=== PATIENT | female | born 1975 | race Caucasian/White ===

== ENCOUNTER 2022-09-19 00:49 | Day surgery (SDC) | payer BC, SELFPAY ==
[2022-09-08 15:10] VITALS: BMI 25.7
--- NOTE | 2022-09-08 15:15 | PC.NURSE ---
Report to the Outpatient Waiting Room, entrance under the green pavilion located off [facility], at time 07:45AM on date 09-19-22. Planned Procedure Time: 09:45AM. Time changes happen often and if your time is changed the preop area will call you the afternoon before. - You and your visitor will be asked to self-screen and do not enter if you have any COVID symptoms. - Only one visitor is requested with a max of two and NO children visitors are allowed at this time. - The patient visitor may be requested to leave or wait in car when not with patient due to distancing restrictions. - A mask is optional within the hospital at this time. Patients may have clear liquids (water, carbonated beverages, clear teas, apple juice) until 3 hours prior to surgery (06:45AM) with a maximum of 20 ounces. - No food from midnight until time of surgery Take the following medications with a SIP of water the morning of surgery: N/A DO NOT STOP ANY OF YOUR OTHER PRESCRIPTION MEDICATIONS PRIOR TO SURGERY ?EXCEPT THE FOLLOWING Medications to discontinue per physician: VITAMINS AND SUPPLEMENTS Date to take last dose 09-15-22 Please no make-up, nail indonesian, hairspray, perfume, deodorant, or body powder the day of surgery. No jewelry (including any body piercings) or valuables the day of surgery, leave them at home. Please take a shower or bath the night before, or the morning of, surgery with an antibacterial soap. Wear comfortable, loose fitting clothing. - Jewelry must be removed prior to entering the operating room. Rings and piercings that are not removed may be cut off. - The hospital will not accept responsibility for valuables. - Please leave all valuables, including medications, at home the day of surgery. If you are going home after surgery, a licensed courier delivery driver must drive you home. - NO public transportation without another adult if you receive anesthesia. - We recommend that an adult stay with you for 24 hours following discharge. - We also recommend that you do not drive, make important decision, drink alcoholic beverages, or take any drugs that were not prescribed by your health care provider for at least 24 hours after your discharge time. Follow any additional instructions given to you from your surgeon. If you or anyone in your household have experienced Covid symptoms in the past week, please notify your surgeon or the nurse liaison at the phone number below for possible testing. Telephone instructions given to PATIENT and asked if any additional questions and then verbalized understanding. Patient advised to call surgeon office or pre surgery nurse liaison [phone] if any additional questions.
--- NOTE | 2022-09-19 07:25 | WPDHPUPDATE1 ---
History and Physical Update Update Date/Time: 09/19/22 07:25 History and Physical has been reviewed, including an updated exam of the patient. There are NO changes in the patient's condition. Risks, benefits, and alternatives have been discussed and questions answered. Patient agrees to proceed with procedure.
--- NOTE | 2022-09-19 07:26 | PM.HPGS ---
History of Present Illness History of Present Illness Consent: Risks, benefits, and alternatives have been discussed and questions answered. Patient agrees to proceed with procedure. Chief complaint: menorrhagia Narrative: Isabella Robbins is a 46 year old female had abnormal vaginal bleeding. Patient has had random spotting throughout her cycle. The pelvic ultrasound reveals a fibroid but is otherwise normal. It was recommended for further evaluation with hysteroscopy D&C. Risks of infection, bleeding, perforation, and possible pathology are reviewed. Patient voices understanding and agrees to proceed. Review of Systems Review of Systems: not repeated day of surgery; patient states no changes in status [facility] Past Medical History Medical History (Updated 09/19/22 @ 07:29 by Deena Kerns MD) Depression Surgical History Surgical History (Updated 09/19/22 @ 07:29 by Deena Kerns MD) History of bilateral tubal ligation with her 4th History of x4 History of foot surgery History of hysteroscopy 2016 pathology revealed placental nodules Social History Social History Smoking status: Never smoker Second hand tobacco smoke exposure: No Alcohol intake: current Drinks per week: 5 Alcohol use details: WINE Substance use: never Substance use type: does not use Living arrangements: with family Spiritual care concerns: No Meds Home Medications and Allergies Home Medications Medication Instructions Recorded Confirmed Type Adults Multivitamin 1 tab-cap PO DAILY 09/08/22 09/08/22 History Flonase 1 spray PO DAILY 09/08/22 09/08/22 History ascorbate calcium (vitamin C) 500 PO DAILY 09/08/22 History mg capsule ergocalciferol (vitamin D2) 1,250 50,000 unit PO DAILY 09/08/22 09/08/22 History mcg (50,000 unit) capsule Allergies Allergy/AdvReac Type Severity Reaction Status Date / Time XEROFORM GAUZE Allergy Mild RASH Uncoded 09/08/22 15:06 Exam Const: General: healthy appearing and alert Orientation/consciousness: patient oriented x3 Resp: Effort & Inspection: normal respiratory effort Auscultation: clear to auscultation bilaterally Cardio: Rate: regular rate Rhythm: regular rhythm GI: GI Palp: Yes Soft to palpation, No Tenderness to palpation present (GI) and No Palpable mass present : External Female Exam: normal external appearance Speculum Exam - Vagina: normal appearance of the vagina and normal vaginal discharge Speculum Exam - Cervix: normal appearance of the cervix Bimanual exam- vagina & uterus: uterine size normal and consistency normal Bimanual Exam- Adnexa, other: normal adnexae and No adnexal tenderness Neuro: General: patient oriented x3 Assessment and Plan Assessment and plan (1) Menometrorrhagia: Code(s): N92.1 - Excessive and frequent menstruation with irregular cycle Status: Acute Assessment and Plan: plan is to proceed with D&C hysteroscopy
--- NOTE | 2022-09-19 08:07 | P.PNAN_ITS ---
Anes - Initial Pre Proc Eval Procedure: Operation Date: 09/19/22 09:45 Proposed Procedures p Hysteroscopy Dilation and Curettage - Deena Kerns MD Date/Time: 09/19/22 08:07 Surgeon: Deena Kerns MD Pre Op Diagnosis: menorrhagia Patient Data Age: 46 Gender: F Height: 1.65 m Weight: 70 kg Allergies Allergy/AdvReac Type Severity Reaction Status Date / Time XEROFORM GAUZE Allergy Mild RASH Uncoded 09/08/22 15:06 Home Medications Medication Instructions Recorded Confirmed Type Adults Multivitamin 1 tab-cap PO DAILY 09/08/22 09/08/22 History Flonase 1 spray PO DAILY 09/08/22 09/08/22 History ascorbate calcium (vitamin C) 500 PO DAILY 09/08/22 History mg capsule ergocalciferol (vitamin D2) 1,250 50,000 unit PO DAILY 09/08/22 09/08/22 History mcg (50,000 unit) capsule Patient hx anesthesia problems: none Family hx anesthesia problems: none Results Review: All pre-operative results and documents have been reviewed as part of the pre-operative evaluation. [facility] Past Medical History Medical History (Updated 09/19/22 @ 07:29 by Deena Kerns MD) Depression Surgical History Surgical History History of bilateral tubal ligation with her 4th History of x4 History of foot surgery History of hysteroscopy 2016 pathology revealed placental nodules Social History Social History Smoking status: Never smoker Second hand tobacco smoke exposure: No Alcohol intake: current Drinks per week: 5 Alcohol use details: WINE Substance use: never Substance use type: does not use Living arrangements: with family Spiritual care concerns: No Anes - Eval Final PreProcedure Day of Procedure 09/19/22 08:07 Patient weight: normal Heart: regular rate and rhythm Lungs: clear to auscultation Airway: Mallampati scale class II Neurological: alert and oriented Last oral intake: >/= 8 hours ASA classification: II Emergent: no Anesthetic plan: proceed Anesthesia type and monitoring: general GIVS and standard monitoring Results Review: All pre-operative results and documents have been reviewed as part of the pre- operative evaluation. Informed Consent: The patient's anesthetic plan and its attendant risks and benefits were discussed with the patient/family/POA. Questions were solicited and answers provided to the satisfaction of the patient/family/POA.
[2022-09-19 08:26] VITALS: BP 134/82; PULSE 64; RESP 14; TEMP 36.4; O2SAT 97
[2022-09-19] MEDS: LACTATED RINGERS 1,000 ML 30 ML IV CONT (08:30)
[2022-09-19] MEDS: ACETAMINOPHEN 500 MG TABLET 1000 MG PO (08:30)
[2022-09-19] MEDS: LIDOCAINE 1% BUFFERED WITH 8.4% SODIUM BICARB 1 ML SYRINGE 10 ML INFILTRATE (09:38)
[2022-09-19] MEDS: KETOROLAC 30 MG/ML VIAL (*BKC) IV PUSH (09:41)
--- NOTE | 2022-09-19 09:46 | W.PM.PROC2 ---
Procedure Note - Detailed Date of Procedure 09/19/22 Pre-op Diagnosis menorrhagia Post-op Diagnosis Same Procedure Performed D&C hysteroscopy Surgeon Deena Kerns MD Anesthesia MAC and Local Findings the uterus sounds to 10cm and is retroverted; endometrium appears grossly normal Description of Procedure The patient is taken to the operating room and placed under anesthesia in the dorsal lithotomy position. She was prepped and draped in usual sterile fashion. [place] speculum was placed in the vagina and the cervix grasped on the anterior lip with a tenaculum and injected with 1% lidocaine in each quadrant. The uterus is sounded to 10cm and noted to be retroverted. The diagnostic hysteroscope was placed with the above-stated findings. The hysteroscope was then removed. The small curette is used to sharply curette the endometrium until a good uterine cry was noted in all areas. All instruments are removed. Sponge, needle, and instrument counts are correct per the OR staff. Patient is awakened from anesthesia and taken to recovery in stable condition. Estimated Blood Loss 5 Drains No Packing No Pathology Yes ( Endometrial curettings) Complications No immediate complications Condition Stable Disposition PACU
[2022-09-19 09:49] VITALS: BP 103/70; PULSE 58; RESP 14; O2SAT 98
[2022-09-19 10:20] VITALS: BP 138/88; PULSE 52; RESP 16
== END 2022-09-19 10:50 | disposition home or self-care (01) ==
PROVIDERS: Visit Provider Obstetrics & Gynecology Gynecology
PROC: 0U5B8ZZ Destruction of Endometrium, Via Natural or Artificial Opening Endoscopic (ICD-10-PCS; CPT 58563; principal; 2022-09-19 09:45)
DX: N92.1 Excessive and frequent menstruation with irregular cycle (principal)
CPT/HCPCS: 58558; 88305; A9270; J1100; J1885; J2250; J2405; J2704; J3010; J7120